=== PATIENT | male | born 1940 | race Caucasian/White ===

== ENCOUNTER 2018-02-02 10:21 | Outpatient (CLI) | payer MEDICARE, MEDICAID ==
--- NOTE | 2018-02-02 14:37 | CARDIAC PROCEDURE NOTE ---
DATE OF SERVICE: 02/02/2018 Physician: Cecilia Ordaz MD EXERCISE CARDIOLYTE TEST Modified Mina time was 3 minutes 7 seconds. KWAME 45 minutes, METS 4.64. Heart rate response, restin g at 82 to a maximum of 160. Blood pressure response 200/90 to maximum 218/100. REASON FOR STOPPING TEST: The patient had exceeded his target heart rate. SYMPTOMS: The patient had no symptoms during the test, but complained of sharp left-sided chest pain during recovery, which resolved. ARRHYTHMIAS: Multiple PVCs detected. ST segment response, no significant ST segment elevations or d epressions. EXAM CHANGES: None. IMPRESSION: No significant EKG changes. Symptom of left-sided sharp chest pain. CONCLUSION: Await imaging test. TD: 02/02/2018 13:00
--- NOTE | 2018-02-02 15:08 | Nuclear Medicine Report ---
Reason: CHF Procedure Date: 02/02/2018 Accession Number: [id number] / [id number] Procedure: NM - Myocardial Perfusion STR/RST CPT Code: FULL RESULT: EXAM: SINGLE-ISOTOPE EXERCISE STRESS TEST. SINGLE-ISOTOPE AND ONE-DAY REST/STRESS MYOCARDIAL PERFUSION SCANS WITH TOMOGRAPHIC IMAGING, QUANTITATIVE ANALYSIS. EXAM DATE: 02/02/2018 02:11 PM. CLINICAL HISTORY: Congestive heart failure. COMPARISON: None available. TECHNIQUE: A rest myocardial perfusion scan was done with tomography after the intravenous administration of 10.1 mCi Tc-99m sestamibi. After an appropriate delay, a treadmill exercise stress was performed according to department protocol. The patient exercised for 3 minutes and 7 seconds. The maximum heart rate was 160 bpm, which was 110% of the maximum predicted heart rate of 145 bpm. At approximately peak heart rate, 42 mCi of Tc-99m sestamibi was injected for stress myocardial perfusion scan. Motion correction was applied when appropriate. Gated images could not be obtained because of cardiac arrhythmia. FINDINGS: There is minor apical thinning noted. No convincing fixed or reversible perfusion defects are evident. Computer analysis: Summed stress score 2 Summed rest score 1 Summed difference score 1 IMPRESSION: 1. No convincing significant fixed or reversible perfusion defects. 2. Based on computer analysis, normal exam with no ischemia. RADIA
== END 2018-02-02 10:22 | disposition home or self-care (01) ==
LOC: DI 10:21
PROVIDERS: ATTEND Internal Medicine
DX: I50.9 Heart failure, unspecified (principal); R07.9 Chest pain, unspecified
CPT/HCPCS: 78452; 93017; A9500

== ENCOUNTER 2018-02-03 08:20 | Outpatient (CLI) | payer MEDICARE, MEDICAID | END 2018-02-03 08:21 | disposition home or self-care (01) | LOC: DI 08:20 | PROVIDERS: ATTEND Internal Medicine | DX: I50.9 Heart failure, unspecified (principal); I48.91 Unspecified atrial fibrillation; I35.8 Other nonrheumatic aortic valve disorders; I34.0 Nonrheumatic mitral (valve) insufficiency; I27.20 Pulmonary hypertension, unspecified | CPT/HCPCS: 93306 ==

== ENCOUNTER 2018-05-01 12:52 | Outpatient (CLI) | payer MEDICARE, MEDICAID ==
[2018-05-01 13:11] LABS: CALCIUM 9.4 mg/dL (8.5-10.3); CREATININE 1.2 mg/dL (0.6-1.2)
== END 2018-05-01 12:53 | disposition home or self-care (01) ==
LOC: LAB 12:52
PROVIDERS: ATTEND Internal Medicine Cardiovascular Disease
DX: I10 Essential (primary) hypertension (principal)
CPT/HCPCS: 36415; 80048

== ENCOUNTER 2018-06-29 10:08 | Outpatient (CLI) | payer MEDICARE, MEDICAID ==
[2018-06-29 10:56] LABS: BASOPHILS % (AUTO) 0.9 %; EOSINOPHILS # (AUTO) 0.3 10^3/uL (0.0-0.7); EOSINOPHILS % (AUTO) 6.5 %; HGB - HEMOGLOBIN 14.3 g/dL (14.0-18.0); LYMPHOCYTES # (AUTO) 0.9 10^3/uL (1.5-3.5); LYMPHOCYTES % (AUTO) 18.8 %; MEAN CORPUSCULAR HEMOGLOBIN 29.3 pg (27.0-31.0); MEAN CORPUSCULAR HGB CONC 33.5 g/dL (32.0-36.0); MEAN CORPUSCULAR VOLUME 87.3 fL (80.0-94.0); MEAN PLATELET VOLUME 9.3 fL (7.4-11.4); MONOCYTES # (AUTO) 0.5 10^3/uL (0.0-1.0); MONOCYTES % (AUTO) 11.1 %; NEUTROPHILS % (AUTO) 62.7 %; PLT - PLATELET COUNT 135 10^3/uL (130-450); RED BLOOD COUNT 4.87 10^6/uL (4.70-6.10); RED CELL DISTRIBUTION WIDTH 14.5 % (12.0-15.0); WHITE BLOOD COUNT 4.8 x10^3/uL (4.8-10.8)
[2018-06-29 11:06] LABS: CALCIUM 9.9 mg/dL (8.5-10.3); CREATININE 1.2 mg/dL (0.6-1.2)
== END 2018-06-29 10:09 | disposition home or self-care (01) ==
LOC: LAB 10:08
PROVIDERS: ATTEND Internal Medicine Cardiovascular Disease
DX: I48.2 Chronic atrial fibrillation (principal)
CPT/HCPCS: 36415; 80048; 85025

== ENCOUNTER 2018-10-06 11:34 | Outpatient (CLI) | payer MEDICARE, MEDICAID ==
[2018-10-06 11:46] LABS: HGB - HEMOGLOBIN 13.2 g/dL (14.0-18.0); MEAN CORPUSCULAR HEMOGLOBIN 30.9 pg (27.0-31.0); MEAN CORPUSCULAR HGB CONC 33.2 g/dL (32.0-36.0); MEAN PLATELET VOLUME 10.4 fL (7.4-11.4); RED BLOOD COUNT 4.27 10^6/uL (4.70-6.10); RED CELL DISTRIBUTION WIDTH 13.2 % (12.0-15.0); WHITE BLOOD COUNT 5.2 x10^3/uL (4.8-10.8)
[2018-10-06 11:54] LABS: CALCIUM 9.5 mg/dL (8.5-10.3); CREATININE 1.2 mg/dL (0.6-1.2); PROTEIN/CREATININE RATIO,URINE 0.1 (<=0.2)
== END 2018-10-06 11:35 | disposition home or self-care (01) ==
LOC: LAB 11:34
PROVIDERS: ATTEND Internal Medicine Nephrology
DX: N05.9 Unspecified nephritic syndrome with unspecified morphologic changes (principal); D70.9 Neutropenia, unspecified; D63.1 Anemia in chronic kidney disease; R80.9 Proteinuria, unspecified
CPT/HCPCS: 36415; 80048; 82570; 84156; 85027

== ENCOUNTER 2018-10-18 18:42 | Outpatient (CLI) | payer MEDICARE, MEDICAID ==
--- NOTE | 2018-10-20 09:40 | Ultrasound Report ---
Reason: STAGE 3 KIDNEY DISEASE Procedure Date: 10/18/2018 Accession Number: [id number] / [id number] Procedure: US - Retroperitoneal CPT Code: FULL RESULT: EXAM: RENAL ULTRASOUND EXAM DATE: 10/18/2018 07:00 PM. CLINICAL HISTORY: Stage 3 kidney disease. COMPARISON: ABD 11/21/2009 8:47 AM. TECHNIQUE: Real-time scanning was performed with static images obtained. FINDINGS: Right Kidney: 10.6 cm. Small amount of free fluid noted adjacent to the inferior pole of the right kidney. Questionable ill-defined poorly marginated lesion in the inferior right kidney difficult to measure given the indistinct margins. No stones or hydronephrosis. Left Kidney: 12.5 cm. No contour-deforming mass, stones, or hydronephrosis. Cortical thinning. Normal echotexture. 1.1 x 1.2 cm anechoic mid left renal cyst. No wall irregularities, mural nodules or thickened septations. Bladder: Bilateral jets seen. The prevoid bladder volume was 231 cc. The postvoid bladder volume was 27.1 cc. Other: None. Comment: No cine images were provided. IMPRESSION: 1. Questionable ill-defined inferior right renal lesion. This may represent an artifact versus a mass lesion. Given the indistinct margins, accurate measure was not possible. Recommend contrast enhanced CT or MRI examination to exclude a lesion. 2. No renal stones or hydronephrosis. 1.2 cm left simple renal cyst. No concerning mass in the left kidney. 3. Normal bladder. RADIA
== END 2018-10-18 18:43 | disposition home or self-care (01) ==
LOC: DI 18:42
PROVIDERS: ATTEND Internal Medicine Nephrology
DX: N18.3 Chronic kidney disease, stage 3 (moderate) (principal); N28.9 Disorder of kidney and ureter, unspecified; N28.1 Cyst of kidney, acquired
CPT/HCPCS: 76770

== ENCOUNTER 2018-10-30 09:41 | Outpatient (CLI) | payer MEDICARE, MEDICAID ==
[2018-10-30] MEDS ORDERED: IOVERSOL 320 100 ML VIAL IVP ONE ×2 (09:58→10:19)
--- NOTE | 2018-11-02 07:39 | CT Report ---
Reason: INFERIOR RIGHT RENAL LESION Procedure Date: 10/30/2018 Accession Number: [id number] / [id number] Procedure: CT - ABDOMEN W/WO CPT Code: FULL RESULT: EXAM: CT ABDOMEN WITHOUT AND WITH CONTRAST EXAM DATE: 10/30/2018 10:18 AM. HISTORY: Inferior right renal lesion. Followup to ultrasound. COMPARISON: RETROPERITONEAL 10/18/2018 7:04 PM. TECHNIQUE: Routine helical CT imaging was performed through the abdomen before and after administration of IV contrast: . Enteric contrast: No. Reconstruction: Coronal and sagittal. In accordance with CT protocol optimization, one or more of the following dose reduction techniques were utilized for this exam: automated exposure control, adjustment of mA and/or KV based on patient size, or use of iterative reconstructive technique. FINDINGS: Lung Bases: Lung bases appear clear. There is mild cardiomegaly. Liver: Normal. No masses. Gallbladder/Bile Ducts: Unremarkable. Spleen: Normal. Pancreas: Normal. No masses or ductal obstruction. Adrenal Glands: Normal. Kidneys: No mass is identified of the right kidney, including the inferior aspect of the right kidney, where trace fat stranding seen. There is a 1.0 cm exophytic cyst laterally at the midpole left kidney. The kidneys enhance symmetrically. Peritoneal Cavity/Bowel: Normal. No free fluid, free air or adenopathy. No masses or acute inflammatory process. The appendix is well visualized and normal. Vasculature: No aneurysms or other significant abnormality. Bones: No significant abnormality. Other: None. IMPRESSION: No suspicious renal mass is identified. RADIA
== END 2018-10-30 09:42 | disposition home or self-care (01) ==
LOC: DI 09:41
PROVIDERS: ATTEND Nurse Practitioner
DX: N28.9 Disorder of kidney and ureter, unspecified (principal)
CPT/HCPCS: 74170; Q9967

== ENCOUNTER 2019-12-15 07:36 | Outpatient (CLI) | payer MEDICARE, MEDICAID ==
[2019-12-15 07:49] LABS: BASOPHILS # (AUTO) 0.1 10^3/uL (0.0-0.1); BASOPHILS % (AUTO) 0.9 %; EOSINOPHILS # (AUTO) 0.2 10^3/uL (0.0-0.7); EOSINOPHILS % (AUTO) 4.4 %; LYMPHOCYTES # (AUTO) 1.3 10^3/uL (1.5-3.5); LYMPHOCYTES % (AUTO) 23.7 %; MEAN CORPUSCULAR HEMOGLOBIN 29.7 pg (27.0-31.0); MEAN CORPUSCULAR HGB CONC 32.6 g/dL (32.0-36.0); MEAN CORPUSCULAR VOLUME 91.1 fL (80.0-94.0); MEAN PLATELET VOLUME 10.8 fL (7.4-11.4); MONOCYTES # (AUTO) 0.6 10^3/uL (0.0-1.0); MONOCYTES % (AUTO) 10.6 %; NEUTROPHILS # (AUTO) 3.2 10^3/uL (1.5-6.6); PLT - PLATELET COUNT 160 10^3/uL (130-450); RED BLOOD COUNT 5.05 10^6/uL (4.70-6.10); RED CELL DISTRIBUTION WIDTH 13.4 % (12.0-15.0); WHITE BLOOD COUNT 5.4 x10^3/uL (4.8-10.8)
[2019-12-15 08:00] LABS: CREATININE,URINE 86.6 mg/dL; MICROALBUM/CREATININE RATIO,UR 75.1 ug/mg (<30.0); MICROALBUMIN,URINE 6.5 mg/dL (0-300.0)
[2019-12-15 08:09] LABS: ALBUMIN 4.4 g/dL (3.2-5.5); ALBUMIN/GLOBULIN RATIO 1.5 (1.0-2.2); ALKALINE PHOSPHATASE 26 IU/L (42-121); ALT ALANINE AMINOTRANSFERASE 25 IU/L (10-60); AST ASPARTATE AMINOTRANSFERASE 26 IU/L (10-42); BILIRUBIN,TOTAL 0.9 mg/dL (0.2-1.0); BUN - BLOOD UREA NITROGEN 25 mg/dL (6-20); CALCIUM 9.6 mg/dL (8.5-10.3); CARBON DIOXIDE - CO2 28 mmol/L (21-32); CHLORIDE 100 mmol/L (101-111); CHOLESTEROL 128 mg/dL; CREATININE 1.4 mg/dL (0.6-1.2); GLUCOSE 143 mg/dL (70-100); HDL CHOLESTEROL 65 mg/dL; SODIUM 140 mmol/L (135-145); TOTAL PROTEIN 7.3 g/dL (6.7-8.2)
[2019-12-15 08:21] LABS: THYROID STIMULATING HORMONE 24.52 uIU/mL (0.34-5.60)
[2019-12-15 08:22] LABS: FREE T3 5.77 pg/mL (2.5-3.9)
[2019-12-15 08:23] LABS: FREE T4 (FREE THYROXINE) 1.54 ng/dL (0.58-1.64)
== END 2019-12-15 07:37 | disposition home or self-care (01) ==
LOC: LAB 07:36
PROVIDERS: ATTEND Nurse Practitioner
DX: E78.5 Hyperlipidemia, unspecified (principal); I13.0 Hypertensive heart and chronic kidney disease with heart failure and stage 1 through stage 4 chronic kidney disease, or unspecified chronic kidney disease; N18.30 Chronic kidney disease, stage 3 unspecified; I50.22 Chronic systolic (congestive) heart failure; Z79.01 Long term (current) use of anticoagulants; Z79.899 Other long term (current) drug therapy; R53.83 Other fatigue; G47.10 Hypersomnia, unspecified; I48.11 Longstanding persistent atrial fibrillation
CPT/HCPCS: 36415; 80053; 80061; 82043; 82570; 83721; 84439; 84443; 84481; 85025

== ENCOUNTER 2020-11-30 10:50 | Outpatient (CLI) | payer MEDICARE, MEDICAID ==
[2020-11-30 11:18] LABS: BASOPHILS % (AUTO) 0.8 %; EOSINOPHILS # (AUTO) 0.2 10^3/uL (0.0-0.7); EOSINOPHILS % (AUTO) 4.7 %; HCT - HEMATOCRIT 46.4 % (42.0-52.0); HGB - HEMOGLOBIN 14.9 g/dL (14.0-18.0); LYMPHOCYTES % (AUTO) 21.9 %; MEAN CORPUSCULAR HEMOGLOBIN 29.9 pg (27.0-31.0); MEAN CORPUSCULAR HGB CONC 32.1 g/dL (32.0-36.0); MEAN PLATELET VOLUME 10.6 fL (7.4-11.4); MONOCYTES # (AUTO) 0.5 10^3/uL (0.0-1.0); MONOCYTES % (AUTO) 11.5 %; NEUTROPHILS # (AUTO) 2.9 10^3/uL (1.5-6.6); NEUTROPHILS % (AUTO) 60.7 %; PLT - PLATELET COUNT 170 10^3/uL (130-450); RED BLOOD COUNT 4.99 10^6/uL (4.70-6.10); RED CELL DISTRIBUTION WIDTH 13.6 % (12.0-15.0); WHITE BLOOD COUNT 4.7 x10^3/uL (4.8-10.8)
[2020-11-30 13:47] LABS: BUN - BLOOD UREA NITROGEN 22 mg/dL (6-20); CALCIUM 9.5 mg/dL (8.5-10.3); CARBON DIOXIDE - CO2 20 mmol/L (21-32); CHLORIDE 107 mmol/L (101-111); CHOL/HDL RATIO 2.7 (<5.0); CHOLESTEROL 194 mg/dL; CREATININE 1.2 mg/dL (0.6-1.2); GFR - MDRD 59 (>89); GLUCOSE 128 mg/dL (70-100); HDL CHOLESTEROL 73 mg/dL; LDL CHOLESTEROL,CALCULATED 111 mg/dL; LDL/HDL RATIO 1.5 (<3.6); SODIUM 142 mmol/L (135-145); TRIGLYCERIDES 49 mg/dL; VLDL CHOLESTEROL 10 mg/dL
== END 2020-11-30 10:51 | disposition home or self-care (01) ==
LOC: LAB 10:50
PROVIDERS: ATTEND Internal Medicine Cardiovascular Disease
DX: I25.10 Atherosclerotic heart disease of native coronary artery without angina pectoris (principal)
CPT/HCPCS: 36415; 80048; 80061; 83721; 85025

== ENCOUNTER 2021-04-25 11:31 | Outpatient (CLI) | payer MEDICARE, MEDICAID ==
[2021-04-25 12:06] LABS: ALBUMIN 4.5 g/dL (3.2-5.5); ALBUMIN/GLOBULIN RATIO 1.5 (1.0-2.2); BILIRUBIN,TOTAL 1.2 mg/dL (0.2-1.0); CALCIUM 9.8 mg/dL (8.5-10.3); CREATININE 1.6 mg/dL (0.6-1.2); MAGNESIUM 1.5 mg/dL (1.7-2.8); TOTAL PROTEIN 7.6 g/dL (6.7-8.2)
[2021-04-25 13:00] LABS: ESTIMATED AVERAGE GLUCOSE 143 mg/dL (70-100); HEMOGLOBIN A1c% 6.6 % (4.27-6.07)
== END 2021-04-25 11:32 | disposition home or self-care (01) ==
LOC: LAB 11:31
PROVIDERS: ATTEND Nurse Practitioner
DX: R73.01 Impaired fasting glucose (principal); N18.31 Chronic kidney disease, stage 3a; E87.6 Hypokalemia; T50.2X5A Adverse effect of carbonic-anhydrase inhibitors, benzothiadiazides and other diuretics, initial encounter
CPT/HCPCS: 36415; 80053; 83036; 83735

== ENCOUNTER 2023-01-02 07:56 | Outpatient (CLI) | payer MEDICARE, MEDICAID ==
--- NOTE | 2023-01-02 16:04 | CT Report ---
PROCEDURE: UPPER EXTREMITY WO - RT INDICATIONS: STRAIN RIGHT BICEP TECHNIQUE: Noncontrast 3 mm axial sections were acquired through right upper extremity from the level of right s houlder joint to mid forearm with coronal and sagittal reformats. For radiation dose reduction, the following was used: automated exposure control, adjustment of mA and/or kV according to patient size . COMPARISON: None. FINDINGS: Image quality: Excellent. Bones: Moderate acromioclavicular joint and glenohumeral joint osteoarthritic changes are seen with joint space narrowing, subchondral sclerosis and marginal osteophyte formation. Well-corticated fragm ent adjacent to the distal clavicle is also seen suggestive of old distal clavicular fracture. Osteoa rthritic changes also seen in elbow joints with joint space narrowing and subchondral sclerosis. Subc ortical cystic changes are seen in capitellum adjacent to its articulation with radial head suggestiv e of osteochondral injury. Additional subcortical cystic changes also noted involving humeral ulnar j oint concerning for additional small osteochondral injuries. There is no elbow fracture or dislocatio n. No suspicious bony lesions. Soft tissues: Examination of included right upper extremity soft tissue shows no gross full-thicknes s rupture of distal biceps tendon at its insertion on proximal radius. No definite full-thickness rup ture of proximal biceps tendon is noted. No soft tissue mass or abnormal fluid collection is seen in the included right upper extremity. No gross muscle atrophy is seen. No full-thickness tendon rupture is seen in elbow joints. IMPRESSION: 1. No CT evidence of full-thickness muscle or tendon rupture in the included right upper extremity. N o soft tissue mass or drainable fluid collection. No abnormal soft tissue calcifications. 2. 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 Likely os teochondral injuries in the elbow joint as above. No acute fracture or dislocation. Reviewed by: Vic Lovett MD on 01/02/2023 1:22 PM PDT Approved by: Vic Lovett MD on 01/02/2023 1:22 PM PDT Station ID: [id number]
== END 2023-01-02 07:57 | disposition home or self-care (01) ==
LOC: DI 07:56
PROVIDERS: ATTEND Nurse Practitioner
DX: M19.011 Primary osteoarthritis, right shoulder (principal); M19.021 Primary osteoarthritis, right elbow

== ENCOUNTER 2023-01-13 10:58 | Outpatient (CLI) | payer MEDICARE, MEDICAID ==
[2023-01-13 11:10] LABS: BASOPHILS # (AUTO) 0.1 10^3/uL (0.0-0.1); BASOPHILS % (AUTO) 0.9 %; EOSINOPHILS # (AUTO) 0.2 10^3/uL (0.0-0.7); LYMPHOCYTES # (AUTO) 1.2 10^3/uL (1.5-3.5); LYMPHOCYTES % (AUTO) 20.5 %; MEAN CORPUSCULAR HEMOGLOBIN 28.8 pg (27.0-31.0); MEAN CORPUSCULAR HGB CONC 31.9 g/dL (32.0-36.0); MEAN CORPUSCULAR VOLUME 90.4 fL (80.0-94.0); MEAN PLATELET VOLUME 10.9 fL (7.4-11.4); MONOCYTES # (AUTO) 0.5 10^3/uL (0.0-1.0); MONOCYTES % (AUTO) 9.4 %; NEUTROPHILS # (AUTO) 3.7 10^3/uL (1.5-6.6); PLT - PLATELET COUNT 163 10^3/uL (130-450); RED CELL DISTRIBUTION WIDTH 14.2 % (12.0-15.0); WHITE BLOOD COUNT 5.8 x10^3/uL (4.8-10.8)
[2023-01-13 11:26] LABS: ALBUMIN 4.6 g/dL (3.2-5.5); ALBUMIN/GLOBULIN RATIO 1.8 (1.0-2.2); ALKALINE PHOSPHATASE 20 IU/L (42-121); ALT ALANINE AMINOTRANSFERASE 20 IU/L (10-60); AST ASPARTATE AMINOTRANSFERASE 26 IU/L (10-42); BILIRUBIN,TOTAL 1.2 mg/dL (0.2-1.0); BUN - BLOOD UREA NITROGEN 22 mg/dL (6-20); CALCIUM 10.2 mg/dL (8.5-10.3); CARBON DIOXIDE - CO2 33 mmol/L (21-32); CHLORIDE 101 mmol/L (101-111); CHOL/HDL RATIO 2.8 (<5.0); CHOLESTEROL 184 mg/dL; CREATININE 1.4 mg/dL (0.6-1.3); GFR - MDRD 49 (>89); GLUCOSE 124 mg/dL (74-104); HDL CHOLESTEROL 66 mg/dL; LDL CHOLESTEROL,CALCULATED 98 mg/dL; LDL/HDL RATIO 1.5 (<3.6); MAGNESIUM 1.8 mg/dL (1.7-2.3); POTASSIUM 3.6 mmol/L (3.5-4.5); SODIUM 140 mmol/L (135-145); TOTAL PROTEIN 7.2 g/dL (6.4-8.9); TRIGLYCERIDES 99 mg/dL (48-352); VLDL CHOLESTEROL 20 mg/dL
[2023-01-13 11:39] LABS: CREATININE,URINE 133.3 mg/dL
[2023-01-13 11:49] LABS: MICROALBUM/CREATININE RATIO,UR 609.9 ug/mg (<30.0); MICROALBUMIN,URINE 81.3 mg/dL
== END 2023-01-13 10:59 | disposition home or self-care (01) ==
LOC: LAB 10:58
PROVIDERS: ATTEND Nurse Practitioner
DX: D64.9 Anemia, unspecified (principal); Z79.01 Long term (current) use of anticoagulants; I13.0 Hypertensive heart and chronic kidney disease with heart failure and stage 1 through stage 4 chronic kidney disease, or unspecified chronic kidney disease; N18.31 Chronic kidney disease, stage 3a; I50.22 Chronic systolic (congestive) heart failure; M06.9 Rheumatoid arthritis, unspecified; I48.11 Longstanding persistent atrial fibrillation
CPT/HCPCS: 36415; 80053; 80061; 82043; 82570; 83721; 83735; 84439; 84443; 84481; 85025

== ENCOUNTER 2023-05-13 15:57 | Emergency (ER) | payer MEDICARE, MEDICAID ==
--- NOTE | 2023-05-13 16:26 | ED Physician Documentation ---
PD HPI CHEST PAIN - Stated complaint Stated Complaint: SOA/CHEST TIGHTNESS - Chief complaint Chief Complaint: Cardiac - Additional information Additional information: 83-year-old male with history of Stage III kidney disease, CHF, A-fib presents emergency department for chest heaviness. Patient said that he called his primary care provider and his nurse told him to come to the emergency department. He says that he has a pulse ox at home has been checking his vitals and has been noticing that his oxygen levels are dropping down to 90%. He also supposed be on Eliquis but he took himself off Because patient said that he did some self research and saw the Eliquis was bad for his kidneys he is also to be on 3 other medications for his hypertension and CHF he does remember which ones they are but he said that he took himself off those as well. Patient also says that he was mixed diagnosed by Dr. blount Sometime ago for hyperthyroid and he has been having heart issues since then because he was on too high of a dose of thyroid medication.He has been afebrile he denies any chest pain but he endorses and persistent chest heaviness discomfort and shortness of breath with minimal activity. PD PAST MEDICAL HISTORY - Past Medical History Past Medical History: Yes Cardiovascular: Congestive heart failure, Atrial fibrillation Respiratory: None Neuro: Alzhiemer's Endocrine/Autoimmune: None GI: None : Benign prostate hypertrophy, Renal insuffiency HEENT: None Musculoskeletal: None Derm: None - Past Surgical History Past Surgical History: Yes Ortho: Spine surgery Cardiovascular: Other - Present Medications Home Medications: Ambulatory Orders Medication Instructions Recorded Confirmed Aspirin [Thao] 325 mg PO BID 05/13/23 05/13/23 - Allergies Allergies/Adverse Reactions: Allergies Allergy/AdvReac Type Severity Reaction Status Date / Time No Known Drug Allergies Allergy Verified 05/13/23 16:09 - Social History Does the pt smoke?: No Smoking Status: Never smoker Does the pt drink ETOH?: No - Immunizations Immunizations are current?: Yes PD ED PE NORMAL - Vitals Vital signs reviewed: Yes - General General: Alert and oriented X 3, No acute distress, Well developed/nourished - HEENT HEENT: Atraumatic, PERRL - Neck Neck: Supple, no meningeal sign, No adenopathy - Cardiac Cardiac: No murmur, Other (irregularly irregular, diminished heart sounds) - Respiratory Respiratory: Other (Tachypneic, diminished breath sounds) - Abdomen Abdomen: Normal bowel sounds, Soft, Non tender, Non distended, No organomegaly - Back Back: No CVA TTP - Derm Derm: Normal color, Warm and dry, No rash - Extremities Extremities: No deformity, No edema Results - Vitals Vitals: Vital Signs - 24 hr 05/13/23 05/13/23 05/13/23 16:02 16:50 17:09 Temperature 36.5 C Heart Rate 91 97 95 Respiratory 18 20 22 Rate Blood Pressure 152/116 H 196/129 H 202/120 H O2 Saturation 96 97 96 05/13/23 05/13/23 05/13/23 18:36 18:47 19:00 Temperature Heart Rate 76 72 73 Respiratory 20 18 22 Rate Blood Pressure 172/104 H 172/104 H 187/116 H O2 Saturation 96 96 96 05/13/23 05/13/23 05/13/23 19:30 20:00 20:10 Temperature Heart Rate 76 87 73 Respiratory 19 19 28 H Rate Blood Pressure 194/111 H 184/117 H 203/130 H O2 Saturation 96 95 94 05/13/23 05/13/23 05/13/23 20:15 20:20 20:25 Temperature Heart Rate 84 78 81 Respiratory 31 H 25 H 18 Rate Blood Pressure 205/110 H 205/146 H 201/136 H O2 Saturation 93 95 95 05/13/23 05/13/23 05/13/23 20:30 20:35 20:40 Temperature Heart Rate 82 83 72 Respiratory 19 31 H 35 H Rate Blood Pressure 194/133 H 220/117 H 189/112 H O2 Saturation 94 95 94 05/13/23 05/13/23 05/13/23 20:45 21:00 21:15 Temperature Heart Rate 81 79 87 Respiratory 25 H 23 23 Rate Blood Pressure 183/123 H 188/123 H 189/130 H O2 Saturation 96 95 95 05/13/23 05/13/23 05/13/23 21:25 21:30 21:35 Temperature Heart Rate 71 75 68 Respiratory 25 H 21 30 H Rate Blood Pressure 204/125 H 185/114 H 189/127 H O2 Saturation 94 96 96 05/13/23 05/13/23 05/13/23 21:40 21:50 21:55 Temperature Heart Rate 79 63 63 Respiratory 30 H 26 H 26 H Rate Blood Pressure 194/94 H 185/97 H 185/97 H O2 Saturation 94 95 95 05/13/23 05/13/23 05/13/23 22:05 22:15 22:30 Temperature Heart Rate 76 70 71 Respiratory 30 H 35 H 28 H Rate Blood Pressure 194/85 H 198/93 H 186/121 H O2 Saturation 95 94 95 Oxygen O2 Source Room air - EKG (time done) 1627 EKG releavant findings:: EKG personally interpreted by author of this note. Relevant findings are: Rate: Rate (enter#) (90) Rhythm: Atrial fibrillation, Other (multiple multiforum PVCs ) Manson: Normal Intervals: Prolonged [place] Ischemia: Other (ST segments in limb leads normal with LVH, unsure what lateral leads are doing given the multiple PVCs) Computer interpretation: Agree with computer 1758 EKG releavant findings:: EKG personally interpreted by author of this note. Relevant findings are: Rate: Rate (enter#) (71) Rhythm: Atrial fibrillation Manson: Normal Ischemia: Normal ST segments, Other Other comments: Other comments (multiple PVCs) Computer interpretation: Agree with computer - Labs Labs: Laboratory Tests 05/13/23 05/13/23 05/13/23 16:28 16:28 16:28 WBC 5.9 RBC 4.85 Hgb 14.2 Hct 44.3 MCV 91.3 MCH 29.3 MCHC 32.1 RDW 14.5 Plt Count 156 MPV 11.6 H Neut # (Auto) 4.1 Lymph # (Auto) 0.9 L Laurel # (Auto) 0.6 Eos # (Auto) 0.3 Baso # (Auto) 0.0 Absolute Nucleated RBC 0.00 Nucleated RBC % 0.0 D-Dimer Sodium 140 Potassium 3.9 Chloride 104 Carbon Dioxide 29 Anion Gap 7.0 BUN 23 H Creatinine 1.4 H Estimated GFR (MDRD) 49 L Glucose 131 H Calcium 10.3 Magnesium 1.8 Total Bilirubin 1.1 H AST 37 ALT 29 Alkaline Phosphatase 27 L Troponin I High Sens 53.4 H* B-Natriuretic Peptide Total Protein 6.8 Albumin 4.3 Globulin 2.5 Albumin/Globulin Ratio 1.7 Lipase 40 05/13/23 05/13/23 05/13/23 16:28 16:28 18:54 WBC RBC Hgb Hct MCV MCH MCHC RDW Plt Count MPV Neut # (Auto) Lymph # (Auto) Laurel # (Auto) Eos # (Auto) Baso # (Auto) Absolute Nucleated RBC Nucleated RBC % D-Dimer 261.3 H Sodium Potassium Chloride Carbon Dioxide Anion Gap BUN Creatinine Estimated GFR (MDRD) Glucose Calcium Magnesium Total Bilirubin AST ALT Alkaline Phosphatase Troponin I High Sens 59.2 H* B-Natriuretic Peptide 876 H Total Protein Albumin Globulin Albumin/Globulin Ratio Lipase 05/13/23 21:02 WBC RBC Hgb Hct MCV MCH MCHC RDW Plt Count MPV Neut # (Auto) Lymph # (Auto) Laurel # (Auto) Eos # (Auto) Baso # (Auto) Absolute Nucleated RBC Nucleated RBC % D-Dimer Sodium Potassium Chloride Carbon Dioxide Anion Gap BUN Creatinine Estimated GFR (MDRD) Glucose Calcium Magnesium Total Bilirubin AST ALT Alkaline Phosphatase Troponin I High Sens 49.5 H* B-Natriuretic Peptide Total Protein Albumin Globulin Albumin/Globulin Ratio Lipase - Rads (name of study) Chest x-ray Relevant Findings:: Final report received, EMP independent interpretation of test, Other (Worsening cardiomegaly, pulmonary edema) PD Medical Decision Making - ED course ED course: 83-year-old male presents emergency department for worsening shortness of breath. Labs collected no leukocytosis no anemia. His D-dimer slightly elevated at 261 but this is age-adjusted appropriate making me less suspicion of possible PE. CMP also collected BUN 23, creatinine 1.4, GFR 49 this appears to be at patient's baseline and within limits to his labs on my lab review. His initial troponin came back elevated at 53.4 it was reevaluated in 2 hours and then 59.2 and then rechecked again 2 hours after that and 49.5 so overall flat troponin. BNP elevated at 876. I originally spoke with Dr. Comer, clay dry press mixer operator with [facility] who said that patient would be eligible for admission with hospitalist services but they do not have any available beds. He suggested oral carvedilol to help with patient's persistent hypertension we have attempted multiple dose of IV metoprolol with little to no success patient's blood pressure remains in the 180s to 190s systolic. We have also given him 40 mg IV Lasix and blood pressure stays persistently elevated with no significant urinary output at this point in time although is only been about 30 to 45 minutes at time of dictation. I then spoke with [facility], hospitalist who is kind enough to admit the patient for further hospitalization. She agrees that patient should be admitted for CHF exacerbation this is most likely not an NSTEMI and agrees with the current plan and regimen. Patient was originally going to leave AGAINST MEDICAL ADVICE but after he had thought for the a while he has agreed to be admitted and agrees to follow clay dry press mixer operator recommendations and is agreed to reinitiate and restart patient's medications that he was originally taking if they are to be prescribed to him again outpatient. Patient is aware that he is going to be transferred to [facility]. Departure - Departure Disposition: 02 Transfer Acute Care Hosp Clinical Impression: Hypertensive emergency, Non-compliance with treatment, Chronic renal failure, stage 3a, Elevated troponin Hypertension Qualifiers: Hypertension type: primary hypertension Qualified Code(s): I10 - Essential (primary) hypertension CHF (congestive heart failure) Qualifiers: Heart failure type: unspecified Heart failure chronicity: unspecified Qualified Code(s): I50.9 - Heart failure, unspecified A-fib Qualifiers: Atrial fibrillation type: permanent Qualified Code(s): I48.21 - Permanent atrial fibrillation Instructions: Troponin, Atrial Fibrillation Dc, ED CHF General Forms: PCP List
[2023-05-13 16:42] LABS: BASOPHILS % (AUTO) 0.7 %; EOSINOPHILS # (AUTO) 0.3 10^3/uL (0.0-0.7); EOSINOPHILS % (AUTO) 4.4 %; HCT - HEMATOCRIT 44.3 % (42.0-52.0); HGB - HEMOGLOBIN 14.2 g/dL (14.0-18.0); LYMPHOCYTES # (AUTO) 0.9 10^3/uL (1.5-3.5); MEAN CORPUSCULAR HEMOGLOBIN 29.3 pg (27.0-31.0); MEAN CORPUSCULAR HGB CONC 32.1 g/dL (32.0-36.0); MEAN CORPUSCULAR VOLUME 91.3 fL (80.0-94.0); MEAN PLATELET VOLUME 11.6 fL (7.4-11.4); MONOCYTES # (AUTO) 0.6 10^3/uL (0.0-1.0); MONOCYTES % (AUTO) 10.3 %; NEUTROPHILS # (AUTO) 4.1 10^3/uL (1.5-6.6); NEUTROPHILS % (AUTO) 69.1 %; PLT - PLATELET COUNT 156 10^3/uL (130-450); RED BLOOD COUNT 4.85 10^6/uL (4.70-6.10); RED CELL DISTRIBUTION WIDTH 14.5 % (12.0-15.0); WHITE BLOOD COUNT 5.9 x10^3/uL (4.8-10.8)
[2023-05-13 16:58] LABS: ALBUMIN 4.3 g/dL (3.2-5.5); ALBUMIN/GLOBULIN RATIO 1.7 (1.0-2.2); BILIRUBIN,TOTAL 1.1 mg/dL (0.2-1.0); CALCIUM 10.3 mg/dL (8.5-10.3); CREATININE 1.4 mg/dL (0.6-1.3); POTASSIUM 3.9 mmol/L (3.5-4.5); TOTAL PROTEIN 6.8 g/dL (6.4-8.9)
[2023-05-13 17:04] LABS: TROPONIN I HIGH SENSITIVITY 53.4 ng/L (2.3-19.7)
--- NOTE | 2023-05-13 17:10 | XRAY Report ---
PROCEDURE: Chest 1V INDICATIONS: Chest pain TECHNIQUE: One view of the chest was acquired. COMPARISON: Chest radiograph on December 21, 2009. FINDINGS: Surgical changes and devices: None. Lungs and pleura: No pleural effusions or pneumothorax. Mild diffuse interstitial prominence and aren ateral perihilar prominence. Bibasilar patchy consolidation. Mediastinum: Mediastinal contours appear normal. Cardiomegaly, mildly increased compared to prior da [place] December 19, 2009. Bones and chest wall: No suspicious bony lesions. Overlying soft tissues appear unremarkable. IMPRESSION: 1.Mild diffuse interstitial prominence and bilateral perihilar prominence may reflect early pulmonary edema. 2.Bibasilar patchy consolidation may represent superimposed atelectasis, aspiration and/or pneumonia. 3.Cardiomegaly, mildly increased compared to prior radiograph dated December 21, 2009. Reviewed by: Allie Cortez MD on 05/13/2023 5:08 PM PDT Approved by: Allie Cortez MD on 05/13/2023 5:08 PM PDT Station ID: [id number]
[2023-05-13] MEDS: METOPROLOL 5 MG/5 ML VIAL IVP STA ×3 (17:13→21:04)
[2023-05-13] MEDS: ASPIRIN 325 MG TABLET PO STA (17:13)
[2023-05-13] MEDS: FUROSEMIDE 40 MG/4 ML VIAL IVP STA (20:25)
[2023-05-13] MEDS ORDERED: ONDANSETRON 4 MG/2 ML VIAL IVP PRN (22:15)
[2023-05-13] MEDS ORDERED: ACETAMINOPHEN 500 MG TABLET PO PRN (22:15)
[2023-05-13] MEDS: NITROGLYCERIN 2% PASTE TOP STA (22:22)
[2023-05-13] MEDS: LOSARTAN 50 MG TABLET PO STA (22:22)
[2023-05-13] MEDS: carvediloL 12.5 MG TABLET PO SCH (23:35)
[2023-05-13] MEDS: ENOXAPARIN 100 MG/ML SYRINGE SUBQ SCH (23:36)
[2023-05-14 00:39] VITALS: O2SAT 96
[2023-05-14 01:19] VITALS: BP 172/87
[2023-05-14] MEDS ORDERED: PANTOPRAZOLE 40 MG TABLET PO SCH (07:00)
[2023-05-14] MEDS ORDERED: ASPIRIN CHEW 81 MG TABLET PO SCH (09:00)
[2023-05-14] MEDS ORDERED: FUROSEMIDE 40 MG/4 ML VIAL IVP SCH (09:00)
[2023-05-14] MEDS ORDERED: LOSARTAN 50 MG TABLET PO SCH (09:00)
[2023-05-14] MEDS ORDERED: ATORVASTATIN 40 MG TABLET PO SCH (21:00)
== END 2023-05-14 01:16 | disposition short-term general hospital (02) ==
LOC: ED 15:57
DX: I16.0 Hypertensive urgency (principal); I13.0 Hypertensive heart and chronic kidney disease with heart failure and stage 1 through stage 4 chronic kidney disease, or unspecified chronic kidney disease; N18.31 Chronic kidney disease, stage 3a; I11.0 Hypertensive heart disease with heart failure; I50.9 Heart failure, unspecified; I48.21 Permanent atrial fibrillation; Z91.148 Patient's other noncompliance with medication regimen for other reason; R79.89 Other specified abnormal findings of blood chemistry
CPT/HCPCS: 36415; 71045; 80053; 83690; 83735; 83880; 84484; 85025; 85379; 93005; 96372; 96374; 96375; 96376; 99285; A9270; J1650; 80048

== ENCOUNTER 2023-07-21 15:46 | Emergency (ER) | payer MEDICARE, MEDICAID ==
--- NOTE | 2023-07-21 16:05 | ED Physician Documentation ---
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 He also has chronic kidney disease. He was seen by my partner in April of this year for chest discomfort and shortness of breath. Found to have modestly elevated troponin and GFR 49. He was quite hypertensive and sent down to [facility]. Per his description there (we will attempt to get a discharge summary) he had angiography that was normal. He woke up this morning at 8 AM with stabbing left-sided chest pain worse with deep breathing. He is modestly short of breath with it. He denies pedal edema or calf pain. States he has been compliant with his medications which include furosemide 40 mg a day, losartan 100 mg a day, amlodipine 10 mg a day, statin, and twice daily Eliquis, and chlorthalidone. PD PAST MEDICAL HISTORY - Past Medical History Past Medical History: Yes Cardiovascular: Congestive heart failure, Atrial fibrillation Respiratory: None Neuro: Alzhiemer's Endocrine/Autoimmune: None GI: None : Benign prostate hypertrophy, Renal insuffiency HEENT: None Musculoskeletal: None Derm: None - Past Surgical History Past Surgical History: Yes Ortho: Spine surgery Cardiovascular: Other - Present Medications Home Medications: Ambulatory Orders Medication Instructions Recorded Confirmed Aspirin [Thao] 325 mg PO BID 05/13/23 05/13/23 - Allergies Allergies/Adverse Reactions: Allergies Allergy/AdvReac Type Severity Reaction Status Date / Time No Known Drug Allergies Allergy Verified 07/21/23 15:53 - Social History Does the pt smoke?: No Smoking Status: Never smoker Does the pt drink ETOH?: No - Immunizations Immunizations are current?: Yes PD ED PE NORMAL - Vitals Vital signs reviewed: Yes - General General: Alert and oriented X 3, No acute distress - HEENT HEENT: PERRL, EOMI - Neck Neck: Supple, no meningeal sign, No bony TTP - Cardiac Cardiac: Other (Irregularly irregular without murmur) - Respiratory Respiratory: No respiratory distress, Clear bilaterally - Extremities Extremities: No edema, No calf tenderness / cord - Neuro Neuro: Alert and oriented X 3, Normal speech Results - Vitals Vitals: Vital Signs - 24 hr 07/21/23 07/21/23 07/21/23 15:50 16:35 16:51 Temperature 36.0 C L Heart Rate 81 57 L 68 Respiratory 18 16 18 Rate Blood Pressure 146/60 H 115/68 121/73 O2 Saturation 99 99 98 07/21/23 18:18 Temperature Heart Rate 86 Respiratory 18 Rate Blood Pressure 131/77 H O2 Saturation 96 Oxygen O2 Source Room air - EKG (time done) 1558 EKG releavant findings:: EKG personally interpreted by author of this note. Relevant findings are: Rate: Rate (enter#) (85) Rhythm: Atrial fibrillation (With PVCs) Intervals: Other (ivcd) Ischemia: No: ST elevation c/w ischemia - Labs Labs: Laboratory Tests 07/21/23 07/21/23 07/21/23 16:05 16:05 18:20 WBC 6.2 RBC 5.24 Hgb 15.1 Hct 47.1 MCV 89.9 MCH 28.8 MCHC 32.1 RDW 14.8 Plt Count 202 MPV 10.3 Neut # (Auto) 4.0 Lymph # (Auto) 1.3 L Harnett # (Auto) 0.6 Eos # (Auto) 0.3 Baso # (Auto) 0.1 Absolute Nucleated RBC 0.00 Nucleated RBC % 0.0 Sodium 139 Potassium 3.4 L Chloride 99 L Carbon Dioxide 31 Anion Gap 9.0 BUN 31 H Creatinine 1.6 H Estimated GFR (MDRD) 42 L Glucose 191 H Calcium 11.3 H Total Bilirubin 1.1 H AST 29 ALT 27 Alkaline Phosphatase 25 L Troponin I High Sens 31.1 H* 31.7 H* Total Protein 8.1 Albumin 5.0 Globulin 3.1 Albumin/Globulin Ratio 1.6 Lipase 53 PD Medical Decision Making - ED course ED course: Labs reviewed. CBC is unremarkable. He has modest worsening of renal function, his GFR went from 49 a couple of months ago down to 42 today. His calcium level is somewhat elevated which is nonspecific. His troponin is better than it was when he went to [facility] 2 months ago. At this time, 4:53 PM, we are still awaiting records from [facility] from 2 months ago. Records from admission in April to [facility] received and reviewed. He had a TTE on May 13 demonstrating EF 42%, mild , severe LAE, severe LVH, diffuse hypokinesis of the LV wall. Had heart cath the next day, May 14 without significant CAD. Subsequently also performed a second troponin which was stable/flat. Given the above, very unlikely that elevated troponin is acute or indicative of an acute coronary syndrome. His pain resolved while in the department. Departure - Departure Disposition: 01 Home, Self Care Clinical Impression: Chest pain Qualifiers: Chest pain type: chest pain on breathing Qualified Code(s): R07.1 - Chest pain on breathing Condition: Good Record reviewed to determine appropriate education?: Yes Instructions: ED Chest Pain NonCardiac Comments: We were able to confirm your report of having a normal coronary angiogram in April at [facility]. That makes it exceedingly unlikely that the current pain is from your heart. Call your doctor to arrange a follow-up appointment, make the next available appointment. In the interim, return anytime if worse or if new symptoms develop. Forms: PCP List Discharge Date/Time: 07/21/23 18:57
[2023-07-21 16:12] LABS: BASOPHILS # (AUTO) 0.1 10^3/uL (0.0-0.1); BASOPHILS % (AUTO) 0.8 %; EOSINOPHILS # (AUTO) 0.3 10^3/uL (0.0-0.7); EOSINOPHILS % (AUTO) 4.7 %; HCT - HEMATOCRIT 47.1 % (42.0-52.0); HGB - HEMOGLOBIN 15.1 g/dL (14.0-18.0); LYMPHOCYTES # (AUTO) 1.3 10^3/uL (1.5-3.5); LYMPHOCYTES % (AUTO) 21.5 %; MEAN CORPUSCULAR HEMOGLOBIN 28.8 pg (27.0-31.0); MEAN CORPUSCULAR HGB CONC 32.1 g/dL (32.0-36.0); MEAN CORPUSCULAR VOLUME 89.9 fL (80.0-94.0); MEAN PLATELET VOLUME 10.3 fL (7.4-11.4); MONOCYTES # (AUTO) 0.6 10^3/uL (0.0-1.0); MONOCYTES % (AUTO) 8.8 %; NEUTROPHILS % (AUTO) 63.9 %; PLT - PLATELET COUNT 202 10^3/uL (130-450); RED BLOOD COUNT 5.24 10^6/uL (4.70-6.10); RED CELL DISTRIBUTION WIDTH 14.8 % (12.0-15.0); WHITE BLOOD COUNT 6.2 x10^3/uL (4.8-10.8)
[2023-07-21 16:37] LABS: ALBUMIN/GLOBULIN RATIO 1.6 (1.0-2.2); BILIRUBIN,TOTAL 1.1 mg/dL (0.2-1.0); CALCIUM 11.3 mg/dL (8.5-10.3); CREATININE 1.6 mg/dL (0.6-1.3); POTASSIUM 3.4 mmol/L (3.5-4.5); TOTAL PROTEIN 8.1 g/dL (6.4-8.9)
[2023-07-21 16:41] LABS: TROPONIN I HIGH SENSITIVITY 31.1 ng/L (2.3-19.7)
[2023-07-21] MEDS: ASPIRIN CHEW 81 MG TABLET PO STA (17:01)
--- NOTE | 2023-07-21 17:16 | XRAY Report ---
PROCEDURE: Chest 1V INDICATIONS: Chest pain TECHNIQUE: One view of the chest was acquired. COMPARISON: 05/13/2023. FINDINGS: Surgical changes and devices: None. Lungs and pleura: No pleural effusions or pneumothorax. Lungs are clear. Mediastinum: Mediastinal contours appear normal. Unchanged cardiomegaly. Bones and chest wall: No suspicious bony lesions. Overlying soft tissues appear unremarkable. IMPRESSION: Unchanged cardiomegaly. No acute pulmonary process. Reviewed by: Ernesto Britt MD on 07/21/2023 5:14 PM PDT Approved by: Ernesto Britt MD on 07/21/2023 5:14 PM PDT Station ID: [id number]
[2023-07-21 18:22] VITALS: BP 131/77; O2SAT 96
== END 2023-07-21 18:57 | disposition home or self-care (01) ==
LOC: ED 15:46
DX: R07.9 Chest pain, unspecified (principal); I48.91 Unspecified atrial fibrillation; I50.9 Heart failure, unspecified; N18.9 Chronic kidney disease, unspecified; Z98.890 Other specified postprocedural states
CPT/HCPCS: 36415; 71045; 80053; 83690; 84484; 85025; 93005; 99284; A9270

== ENCOUNTER 2023-08-17 12:56 | Outpatient (CLI) | payer MEDICARE, MEDICAID ==
--- NOTE | 2023-08-17 13:45 | SLEEP CARE CONSULTATION ---
Information from patient questionnaire entered by Wyatt Oden. I have reviewed and concur with the information entered by Wyatt Oden. This document represents the service I personally performed and the decisions made by me, Renuka Garcia MD, [facility]. History of Present Illness Service Date and Time: 08/17/2023 1256 Reason for Visit: New patient Snores at night: No Observed to quit breathing while asleep: No Sleeps alone due to snoring: No Reasons for waking at night: reports: Bathroom Toss, Turn, or Twitch while sleeping: No Recalls having dreams: No Feels refreshed in the morning: No Morning headache: No Sleepy or fatigued during the day: Yes Ever fallen asleep while driving: No Takes day naps: Yes Dreams during day naps: No Prior sleep studies: Yes Additional HPI information: I had the pleasure of seeing Mr. Bustos today regarding the possibility of him having a sleep disorder. As you know, he is an 83-year-old gentleman who said he had a sleep study at [facility] in [place] over 10 years ago showing obstructive sleep apnea-hypopnea. He has been using a CPAP regularly since. He reports some improvement on the treatment. He is here today because his prescription for supplies runs out. He thinks his durable medical supplier is [employer]. He did not bring the machine or its memory card. He thinks the machine is a [employer]Med AirSense 10. He does not know what pressure is set on the machine. He wears a full face mask. - Parasomnia Symptoms Ever been unable to move upon waking from sleep: No Walks in sleep: No Talks in sleep: No Ever acted out dreams in sleep: No Ever felt weak in the knees when startled or emotional: No Bothered by creepy, crawly, restless sensations in legs: No Problems with memory or concentration: Yes Subjective Initial [place] Sleepiness Scale score: 16 (08/17/23) Past Medical History Past Medical History: reports: Hypertension, Congestive Heart Failure, Other (AFIB) Social History The patient's occupation is a RE. Patient is and lives in [place]. Have you smoked in the past 12 months: No Alcohol use: No Caffeine use: Yes Caffeine amount and frequency: 2 CUPS Family History Family history of sleep disordered breathing: Yes Family Hx Sleep Apnea: Other: Snoring (SON), Sleep apnea - Treated (SON) Allergies and Home Medications Known drug allergies: No Drug allergies reviewed: Yes Home medication list reviewed: Yes Allergy and home medication list: Allergies No Known Drug Allergies Allergy (Verified 08/12/23 13:43) Review of Systems Weight loss over past 5 years: 15 Cardiovascular: reports: irregular heart rate or pulse Respiratory: reports: shortness of breath Gastrointestinal: denies: heartburn, difficulty swallowing, nausea, vomitting, diarrhea, abdominal pain, other Urinary: denies: incontinence, frequency, urgency, impotence, other Neurological: denies: headaches, seizure, head trauma, disorientation, speech dysfunction, gait or balance problems, fainting or unconsciousness, other Psychiatric: denies: Attention Deficit Hyperactivity, anxiety, depression, mood disorder, claustrophobia, other Ear/Nose/Throat: denies: nasal congestion, sinus problems, nose bleeds, dry mouth/throat, hoarseness, injury to nose, tonsillectomy, wisdom teeth removed, other Endocrine: denies: thyroid disease, history of goiter, sluggishness, too hot or cold, excessive thirst, increased appetite, increased urination, unexplained weakness, other Musculoskeletal: reports: joint pain, neck pain Immunologic: denies: sneezing, rash, itching, allergies to food or environment, other Physical Exam Vital signs obtained and entered by: WYATT Davenport MA Blood Pressure: 122/70 (LEFT ARM) Cuff size: regular Heart Rate: 78 O2 Saturation: 97 Height: 5 ft 8 in Weight: 214 lb Body Mass Index: 32.5 BMI Classification: Obese Neck circumference: 17 Mood/affect: Normal HEENT: No craniofacial malformation Nostrils: patent to airflow Turbinates: normal Septum: deviated right Mouth and throat: narrow oropharynx Soft palate: long Hard palate: normal Uvula: normal Uvula visualization: 25% Mallampati Class III Tongue: normal in size Tonsils: absent bilaterally Chin and jaw: normal size and position Neck: normal w/o lymphadenopathy or thyromegaly Heart: regular rate and rhythm, irregular rhythm, murmur Lungs: clear bilaterally Extremities: 1+ edema Neurologic: intact Impression and Plan IMPRESSION: 1. Obstructive Sleep Apnea-Hypopnea Syndrome, as previously diagnosed but there is no record available. We will try to check with his durable medical supplier to see if they have his sleep study results and compliance. If his machine is actually older than 10 years, he is long overdue for a replacement. I will order him a new one once we have his sleep disorder records. If unable to obtain his old sleep study report, a new in-laboratory polysomnography will be performed. Plan: 1. Contact [email or web address] for his records. 2. Prescription will be made for a new machine set on the same pressure once we wave all the required information. 3. Return for a follow-up a year or earlier if there is any problem. Prescriptions: Auto CPAP, Device supplies Follow up with Sleep Care in: 1 year Visit Type: In Office Time Spent with Patient (minutes): 15 Provider Statement: I spent 100% of the Face to Face Visit with the patient with greater than 50% spent counseling the patient and coordination of care.
[2023-08-17 14:03] VITALS: BP 122/70; O2SAT 97
== END 2023-08-17 12:57 | disposition home or self-care (01) ==
LOC: SC 12:56
PROVIDERS: ATTEND Internal Medicine Pulmonary Disease
DX: G47.33 Obstructive sleep apnea (adult) (pediatric) (principal)
CPT/HCPCS: 99202; G0463; 99212

== ENCOUNTER 2023-10-04 20:30 | Outpatient (CLI) | payer MEDICARE, MEDICAID | END 2023-10-04 20:31 | disposition home or self-care (01) | LOC: SC 20:30 | PROVIDERS: ATTEND Internal Medicine Pulmonary Disease | DX: G47.31 Primary central sleep apnea (principal); G47.61 Periodic limb movement disorder; I48.91 Unspecified atrial fibrillation | CPT/HCPCS: 95810 ==

== ENCOUNTER 2023-10-19 13:06 | Outpatient (CLI) | payer MEDICARE, MEDICAID ==
--- NOTE | 2023-10-19 19:42 | SLEEP CARE CONSULTATION ---
Information from patient questionnaire entered by Meghan Oden. I have reviewed and concur with the information entered by Meghan Oden. This document represents the service I personally performed and the decisions made by me, Renuka Garcia MD, [facility]. History of Present Illness Service Date and Time: 10/19/2023 1306 Initial [place] Sleepiness Scale score: 16 (08/17/23) Current [place] Sleepiness Scale score: 12 (10/19/23) Additional HPI information: Mr. Bustos returned for follow up of the sleep study he had on 10/04/23. The polysomnography showed that the patient had poor sleep efficiency due to frequent awakenings throughout the night. The sleep architecture was abnormal for sleep fragmentation and reduced amount of time spent in REM and slow wave sleep (N3). Respiratory monitoring showed severe central sleep apnea and Moshe- Guerin respiration (AHI = 43.6) associated with frequent arousals, oxyhemoglobin desaturation and mild hypoxia (paul oxygen saturation of 81%). The respiratory events occurred slightly more frequently during supine sleep (supine AHI = 60.0; non-supine = 41.50). No adjustment is necessary today. There was severe periodic leg movement of sleep, contributing to the sleep fragmentation. Cardiac rhythm was atrial fibrillation with frequent premature ventricular contractions. No abnormal behavior (parasomnia) observed during the night. The patient was informed of these findings. I explained to him that the sleep- related breathing disorder he has is now mostly central sleep apnea. The patient is presently on an autoBiPAP and the residual AHI is 9.6, mostly central apneas. Sleep Study - Results Type of Sleep Study: Polysomnography (COMPLETED 10/04/23) Prior sleep studies: Yes Allergies and Home Medications Drug allergies reviewed: Yes Home medication list reviewed: Yes Allergy and home medication list: Allergies No Known Drug Allergies Allergy (Verified 10/19/23 13:13) Review of Systems Review of systems same as previous: Yes (NO CHANGE) Physical Exam Vital signs obtained and entered by: MEGHAN Davenport MA Blood Pressure: 140/75 (LEFT ARM) Cuff size: regular Heart Rate: 69 O2 Saturation: 95 Height: 5 ft 8 in Weight: 200 lb 12.8 oz Body Mass Index: 30.5 BMI Classification: Obese Impression and Plan IMPRESSION: 1. Central Sleep Apnea, severe, with Moshe-Guerin respiration. Obviously, the sleep-related breathing disorder is due to his congestive heart failure. The patient will need a BiPAP S/T. I will order a BiPAP S/T titration to show that it is effective, so that Medicare will cover the treatment. PLAN: 1. Schedule a manual BiPAP S/T titration study. 2. Return for follow up after the sleep study. Follow up with Sleep Care in: 1-2 months Visit Type: In Office Time Spent with Patient (minutes): 15 Provider Statement: I spent 100% of the Face to Face Visit with the patient with greater than 50% spent counseling the patient and coordination of care.
[2023-10-19 19:46] VITALS: BP 140/75; O2SAT 95
== END 2023-10-19 13:07 | disposition home or self-care (01) ==
LOC: SC 13:06
PROVIDERS: ATTEND Internal Medicine Pulmonary Disease
DX: G47.31 Primary central sleep apnea (principal); R06.3 Periodic breathing; I50.9 Heart failure, unspecified; E66.9 Obesity, unspecified; Z68.30 Body mass index [BMI] 30.0-30.9, adult
CPT/HCPCS: 99212; G0463